=== PATIENT | male | born 1985 | race African-American/Black ===

== ENCOUNTER 2019-11-17 17:38 | Emergency (ER) | payer MEDICAID ==
[~2019-11-17] VITALS: Ht 175.3 cm; Wt 82.0 kg
[2019-11-17 17:45] VITALS: BP 117/84
== END 2019-11-17 19:56 | disposition home or self-care (01) ==
LOC: ER 18:57
DX: S52.592A Other fractures of lower end of left radius, initial encounter for closed fracture (principal); V18.4XXA Pedal cycle driver injured in noncollision transport accident in traffic accident, initial encounter; Y93.55 Activity, bike riding; Y92.488 Other paved roadways as the place of occurrence of the external cause
CPT/HCPCS: 29125; 73110; 99283

== ENCOUNTER 2019-12-12 11:05 | Emergency (ER) | payer MEDICAID ==
[~2019-12-12] VITALS: Ht 172.7 cm; Wt 89.8 kg
[2019-12-12] MEDS ORDERED: IBUPROFEN 600MG TABLET PO ONE (11:30)
[2019-12-12 11:35] VITALS: BP 118/45
== END 2019-12-12 11:50 | disposition home or self-care (01) ==
LOC: ER 11:05
DX: H60.501 Unspecified acute noninfective otitis externa, right ear (principal); I10 Essential (primary) hypertension
CPT/HCPCS: 99283

== ENCOUNTER 2021-10-13 10:26 | Emergency (ER) | payer MEDICAID ==
[~2021-10-13] VITALS: Ht 175.3 cm; Wt 92.0 kg
[2021-10-13] MEDS ORDERED: IBUPROFEN 600MG TABLET PO STA (10:50)
[2021-10-13] MEDS ORDERED: IBUP-2029 PO (12:17)
[2021-10-13 12:32] VITALS: BP 127/86
== END 2021-10-13 13:11 | disposition home or self-care (01) ==
LOC: ER 10:26
DX: S93.492A Sprain of other ligament of left ankle, initial encounter (principal); S93.692A Other sprain of left foot, initial encounter; W17.89XA Other fall from one level to another, initial encounter; Y93.89 Activity, other specified; Y92.89 Other specified places as the place of occurrence of the external cause; Y99.8 Other external cause status
CPT/HCPCS: 73610; 73630; 99284

== ENCOUNTER 2022-05-01 09:43 | Emergency (ER) | payer MEDICAID ==
[~2022-05-01] VITALS: Ht 167.6 cm; Wt 80.0 kg
[~2022-05-01 09:43] MED LIST: IBUP-2029 PO
[2022-05-01 11:24] LABS: CLARITY URINE CLEAR (CLEAR); COLOR URINE YELLOW (YELLOW); KETONES URINE NEGATIVE (NEGATIVE); LEUKOCYTE ESTERASE URINE NEGATIVE (NEGATIVE); NITRITE URINE NEGATIVE (NEGATIVE); OCCULT BLOOD URINE NEGATIVE (NEGATIVE); PROTEIN URINE TRACE (NEGATIVE); SPECIFIC GRAVITY URINE 1.027 (1.005-1.030)
[2022-05-01 12:14] LABS: BASOPHILS % 0.3 % (0.0-2.0); EOSINOPHILS % 0.8 % (0.0-5.0); HEMOGLOBIN. 14.4 g/dL (14.0-18.0); LYMPHOCYTES % 15.6 % (20.0-50.0); MEAN CORPUSCULAR HEMOGLOBIN 28.2 pg (28.0-32.0); MEAN CORPUSCULAR VOLUME 84.2 fL (80.0-94.0); MEAN PLATELET VOLUME 7.4 fl (7.4-10.4); MONOCYTES % 10.9 % (2.0-8.0); NEUTROPHILS % 72.4 % (40.0-76.0); PLATELET 367 x1000/uL (130-400); RED BLOOD CELL COUNT 5.11 mill/uL (4.7-6.1); RED CELL DISTRIBUTION WIDTH 12.7 % (11.6-14.6)
[2022-05-01 12:22] LABS: CHLORIDE 107 mEq/L (98-107)
[2022-05-01 13:52] VITALS: BP 138/83
== END 2022-05-01 13:54 | disposition home or self-care (01) ==
LOC: ER 10:10
DX: B34.9 Viral infection, unspecified (principal)
CPT/HCPCS: 36415; 71045; 80053; 81003; 85025; 99284

== ENCOUNTER 2024-02-13 07:39 | Emergency (ER) | payer MEDICAID ==
[~2024-02-13] VITALS: Ht 170.2 cm; Wt 77.1 kg
[2024-02-13 07:49] VITALS: O2SAT 99
[2024-02-13 08:21] LABS: CHLORIDE 113 mEq/L (98-107); POTASSIUM 3.9 mEq/L (3.5-5.1); SODIUM 144 mEq/L (136-145)
[2024-02-13 08:22] LABS: CARBON DIOXIDE 23 mEq/L (21-32)
[2024-02-13 08:23] LABS: CALCIUM 9.3 mg/dL (8.7-10.4)
[2024-02-13 08:27] LABS: BASOPHILS % 0.7 % (0.0-2.0); EOSINOPHILS % 0.9 % (0.0-5.0); HEMATOCRIT. 43.8 % (42.0-52.0); HEMOGLOBIN. 14.4 g/dL (14.0-18.0); LYMPHOCYTES % 28.1 % (20.0-50.0); MEAN CORPUSCULAR HEMOGLOBIN 27.6 pg (28.0-32.0); MEAN CORPUSCULAR HGB CONC 32.9 g/dL (31.0-37.0); MEAN CORPUSCULAR VOLUME 84.1 fL (80.0-94.0); MEAN PLATELET VOLUME 7.6 fl (7.4-10.4); MONOCYTES % 9.9 % (2.0-8.0); NEUTROPHILS % 60.4 % (40.0-76.0); PLATELET 306 x1000/uL (130-400); RED BLOOD CELL COUNT 5.21 mill/uL (4.7-6.1); RED CELL DISTRIBUTION WIDTH 12.6 % (11.6-14.6)
[2024-02-13 08:28] LABS: CREATININE 1.1 mg/dL (0.6-1.3); GLUCOSE 108 mg/dL (70-105); UREA NITROGEN BLOOD 11 mg/dL (9-23)
[2024-02-13 09:47] LABS: CLARITY URINE CLEAR (CLEAR); COLOR URINE YELLOW (YELLOW); GLUCOSE URINE NEGATIVE (NEGATIVE); KETONES URINE NEGATIVE (NEGATIVE); PROTEIN URINE NEGATIVE (NEGATIVE); SPECIFIC GRAVITY URINE >=1.030 (1.005-1.030)
[2024-02-13 09:48] LABS: LEUKOCYTE ESTERASE URINE NEGATIVE (NEGATIVE); NITRITE URINE NEGATIVE (NEGATIVE); OCCULT BLOOD URINE TRACE (NEGATIVE); UROBILINOGEN URINE 0.2 E.U./dL (0.2-1.0)
[2024-02-13 09:58] LABS: BACTERIA URINE FEW; SQUAMOUS EPITHELIAL CELL URINE RARE /lpf (RARE/1+); WBC URINE 0-2 /hpf (0-2); YEAST URINE NONE SEEN
[2024-02-13 10:36] VITALS: BP 145/98; PULSE 107; RESP 18; TEMP 36.78072; O2SAT 99
== END 2024-02-13 10:38 | disposition home or self-care (01) ==
LOC: ER 07:39
DX: R04.2 Hemoptysis (principal); J20.8 Acute bronchitis due to other specified organisms; I10 Essential (primary) hypertension; M54.9 Dorsalgia, unspecified
CPT/HCPCS: 36415; 71045; 80048; 81003; 85025; 99284